=== PATIENT | male | born 1955 | race Caucasian/White ===

== ENCOUNTER 2021-08-23 09:15 | Outpatient (RCR) | payer MEDICARE, SELFPAY ==
--- NOTE | 2021-05-26 12:19 | PTOPEVAL ---
Thank you for referring Dez Garrison to [facility].? The patient is scheduled to be seen for therapy? 2 x/week for 8 weeks. Please review, sign, date and return this plan of care JAMES. I agree with and certify that the following plan of care is medically necessary. 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 He uses a walker in the house and wc for distance. He received prosthesis . He has been practicing standing and donning prosthesis Subjective Information He reports limitations with Query Text:As Reported By Patient/ mobility due to his amputation. 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 He is not getting prone or performing LE HEP. Prior Level of Function Home Setting Home Type Apartment Environmental Barriers Stairs, 2-4 Living Situation With Spouse Mobility Assistive Devices (Used Last 3 Walker, Wheeled,Wheelchair, Months) Manual Comments Additional Prior Level of Function He lives with his in an Comments apt with 3 single steps to enter. He is indep with use of ww for mobility. Pain Assessment Self Report Pain Assessment Right Leg(s) Reported Pain Level 0 Pain Description Phantom Lowest Pain Intensity 0 Greatest Pain Intensity 3 Lower Extremity Range of Motion General Lower Extremity Range of Motion Gross Lower Extremity Range of Motion right knee -25 to 115 dg Comments eric hip ext: neutral Lower Extremity Muscle Strength Testing General Lower Extremity Strength Gross Lower Extremity Strength right LE 4/5 without prosthesis left knee flex/ext: 4/5, hip ext: 3-5, hip flex: 4+/5 Posture Standing Position Weight Distribution Weight Shifted Left Knee Posture (R) Excess Flexion Palpation Assessment Palpation scar healed with min scar restriction on lateral edges of right limb. Transfer Assessment Wheelchair Transfer Assessment Ambulation Assistive Devices Walker, Wheeled,Wheelchair, Manual Orthotic/Prosthetic Devices Right Lower Extremity Prosthesis Wheelchair Type
--- NOTE | 2021-05-31 08:10 | PCPTNOTE ---
Patient reports he called to cancel because it was going to rain and did not want to get wet in his wheel chair.
--- NOTE | 2021-06-30 10:51 | PTOPEVAL ---
Physical Therapy Progress Note Thank you for referring Dez Garrison to [facility]. Dez is progressing with his functional mobility with use of AD and prosthesis. He demonstrates improved LE strength, LE range and endurance with ambulation. See summary below for detailed progress and function. The patient is scheduled to be seen for therapy?2 x/week for 4 weeks. Please review, sign, date and return this plan of care JAMES. I agree with and certify that the following plan of care is medically necessary. 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 He uses a walker in the house and wc for distance. He received prosthesis . He has been practicing standing and donning prosthesis Subjective Information He is wearing prosthesis 3 hr Query Text:As Reported By Patient/ in the am and pm. He is using Family 7 sock ply. He is walking at home with the walker. He is performing LE HEP 1x/day. He is stretching prone daily He cont to have intermittent phantom pain in right limb. Pain Assessment Self Report Pain Assessment Right Leg(s) Reported Pain Level 0 Pain Description Phantom Lowest Pain Intensity 0 Greatest Pain Intensity 3 Lower Extremity Range of Motion General Lower Extremity Range of Motion Gross Lower Extremity Range of Motion right knee -10 to 110 dg Comments eric hip ext: neutral Lower Extremity Muscle Strength Testing General Lower Extremity Strength Gross Lower Extremity Strength right knee flex/ext: 5/5, hip flex:5/5, hip abd: 3+/5, hip ext: 4/5 without prosthesis left knee ext: 5/5, hip ext: 3 -5, hip abd: 3+/5, hip flex: 4 +/5 Balance Assessment Time Up Go (TUG) Timed Up and Go Test (TUG) (Seconds) 31 Assistive Devices Walker, Wheeled Comments prosthesis, no pain 5 Time Sit to Stand Time in Seconds 21 5 Time Sit to Stand Comments use of UE support, 50% WB on right LE Gait Assessment Gait Assessment Ambulation Assistive Devices Cane, Large Base Quad,Walker, Wheeled Orthotic/Prosthetic Devices Right Lower Extremity Prosthesis Ambulation Distance 168, 100 Query Text:(Feet) Ambulation Destinatio
--- NOTE | 2021-07-12 08:48 | PCPTNOTE ---
Pt was scheduled for 08:30am appointment, called and spoke with Pt at 08:45am. Pt stated he thought his appointment was at 11:30am. Rescheduled Pt for 11:00am.
--- NOTE | 2021-07-26 10:39 | PTOPEVAL ---
Physical Therapy Progress Note Thank you for referring Dez Garrison to [facility]. Dez has attended 15 therapy visits to address his functional mobility limitations due to recent BKA with new prosthesis. He is progressing towards his therapy goals with improved progression with prosthesis for balance,transfers and ambulation on all surfaces. See summary below for objective measures on progress. The patient is scheduled to be seen for therapy?2 x/week for 4 weeks. Please review, sign, date and return this plan of care JAMES. I agree with and certify that the following plan of care is medically necessary. Referring Physician Date Attending Provider: Jose G Dawson MD Diagnosis right BKA Onset 09/22 Additional Evaluation Detail He was in Rehab for 1 week. He uses a walker in the house and wc for distance. He received prosthesis . Subjective Information He is wearing prosthesis 4-6 Query Text:As Reported By Patient/ hr in the am and sometimes in Family the afternoon as well. He is using 8 sock ply. He is walking at home with the walker. He has a ramp and 3 single steps to reach the car. He has not used the prosthesis in the community. Pain Assessment Self Report Pain Assessment Right Leg(s) Reported Pain Level 0 Pain Score Lower Extremity Range of Motion General Lower Extremity Range of Motion Gross Lower Extremity Range of Motion right knee -10 Comments Lower Extremity Muscle Strength Testing General Lower Extremity Strength Gross Lower Extremity Strength right hip abd: 3+/5, hip ext: 3/5 with prosthesis left hip ext:4-/5, hip abd: 3+ /5 Transfer Assessment Floor Transfer Assessment Orthotic/Prosthetic Devices Right Lower Extremity Prosthesis Floor Transfer Destination Mat Sit to Floor Transfer Ability Standby Assistance Stand to Floor Transfer Ability Minimum Assistance X 1 Floor to Stand Transfer Ability Minimum Assistance X 1 Cues Needed for Floor Transfer Tactile,Verbal Floor Transfer Comments cues for LE position, proper set-up and assist for balance Balance Assessment BOURNE Balance Evaluation Total Score (38/56 points) Comments lifts leg for single leg eric Time Up Go (TUG) Timed Up and Go Test (TUG) (Seconds) 32 Assistive Devices Cane, Large Base Quad,Walker, Wheeled Comments prosthesis, no pain
--- NOTE | 2021-08-25 07:07 | PCPTNOTE ---
This treatment is being continued on visit number 23 to [id number]. Please see documentation on both accounts to view progress. Completed interventions, outcomes, and problems have been marked as Inactive to facilitate the copying of the Care plan routine for recurring accounts.
== END 2021-08-24 10:26 | disposition home or self-care (01) ==
LOC: ANHPT 09:15
PROVIDERS: PCP Family Medicine; Visit Provider Family Medicine
DX: E11.42 Type 2 diabetes mellitus with diabetic polyneuropathy (principal); I10 Essential (primary) hypertension; M54.50 Low back pain, unspecified; G62.9 Polyneuropathy, unspecified; G54.6 Phantom limb syndrome with pain
CPT/HCPCS: 97110; 97112; 97116; 97162; 97530; 97761

== ENCOUNTER 2021-08-25 07:11 | Outpatient (RCR) | payer MEDICARE, SELFPAY ==
--- NOTE | 2021-08-25 07:06 | PCPTNOTE ---
The treatment documented on this account is a continuation of the treatment documented on visit number 23 from [id number]. Please see documentation on both accounts to view progress. The Plan of Care has been transitioned and updated within the new V#. I have addressed and agree with the discipline specific Problems, Interventions, and Goals for the current certification period. Completed interventions, outcomes, and problems have been marked as Inactive to facilitate the copying of the Care plan routine for recurring accounts.
--- NOTE | 2021-08-25 15:25 | PTOPEVAL ---
Physical Therapy Discharge Summary Thank you for referring Dez Garrison to [facility]. Dez has attended 23 therapy visits to address his training with prosthesis. As a result of skilled therapy services he demonstrates improved strength, functional mobility, balance and understanding of proper use and safety with prosthesis. He has reached maximal potential with skilled therapy services at this time. Will DC skilled therapy services at this time. Please review, sign, date and return this discharge summary JAMES. I agree with and certify that the following plan of care is medically necessary. Referring Physician Date Attending Provider: Jose G Dawson MD Diagnosis right BKA Onset 09/22 Additional Evaluation Detail He was in Rehab for 1 week. He uses a walker in the house and wc for distance. He received prosthesis . Subjective Information He is walking more at home Query Text:As Reported By Patient/ inside and outside. He is Family using a ww or quad cane at home. He is wearing 12 sock ply plus has noticed the liner to be loose. He is wearing prosthesis 10-11 hrs in a day. He has not been out in the community. Pain Assessment Self Report Pain Level 0 Lower Extremity Range of Motion General Lower Extremity Range of Motion Gross Lower Extremity Range of Motion right knee -14 with and Comments without prosthesis eric hip ext neutral motion, unable to ext past midline position Lower Extremity Muscle Strength Testing General Lower Extremity Strength Gross Lower Extremity Strength right hip abd: 3+/5, hip ext: 4-/5 with prosthesis left hip ext:4+/5, hip abd: 4- /5 Balance Assessment BOURNE Balance Evaluation Total Score (46/56 points) Comments tandem: right front or left: 30 sec Time Up Go (TUG) Timed Up and Go Test (TUG) (Seconds) 24 Assistive Devices Walker, Wheeled,Cane, Large Base Quad Comments prosthesis TUG with LBQC and prosthesis for 29 sec, increased deviations, increased pain 5 Time Sit to Stand Time in Seconds 18 5 Time Sit to Stand Comments without use of UE support, 75% Query Text:Normative Data: If Greater WB on right LE Gait Asse
== END 2021-08-26 09:30 | disposition home or self-care (01) ==
LOC: ANHPT 07:11
PROVIDERS: PCP Family Medicine; Visit Provider Family Medicine
DX: E11.42 Type 2 diabetes mellitus with diabetic polyneuropathy (principal); I10 Essential (primary) hypertension; M54.50 Low back pain, unspecified; G62.9 Polyneuropathy, unspecified; G54.6 Phantom limb syndrome with pain; Z89.511 Acquired absence of right leg below knee
CPT/HCPCS: 97110; 97116; 97530